=== PATIENT | male | born 1975 | race Caucasian/White ===

== ENCOUNTER 2020-03-16 09:06 | Emergency (ER) | payer OTHER, SELFPAY ==
[2020-03-16 09:15] VITALS: BP 131/83; PULSE 55; RESP 12; TEMP 36.4; O2SAT 99
--- NOTE | 2020-03-16 09:23 | PC.NURSE ---
c/o right testicular tenderness, along with right lymph node tenderness, denies fever,vomiting. denies injuries/trauma. sxs worsen for the last 2-3 days. +voiding without difficulty.
--- NOTE | 2020-03-16 09:27 | PC.NURSE ---
pain 9/10 right testicle.
--- NOTE | 2020-03-16 09:31 | DI.US.S_ITS ---
PROCEDURE: US SCROTUM INDICATIONS: RIGHT TESTICULAR PAIN TECHNIQUE: Real-time scanning was performed of the scrotum and testicles, with image documentation. Color and pulse Doppler interrogation was performed of both testicles. COMPARISON: None. FINDINGS: Right: Testicle is normal in size at 3.1 x 1.2 x 2.8 cm, and homogenous in echotexture. Epididymis is normal in overall size and morphology. No hydrocele or varicoceles. Overlying scrotal skin is normal in thickness. Left: Testicle is normal in size at 2.5 x 1.5 x 3.0 cm, and homogeneous in echotexture. Epididymis is normal in overall size and morphology. No hydrocele or varicoceles. Overlying scrotal skin is normal in thickness. Doppler: Color and pulse Doppler demonstrate normal and symmetric arterial flow in both testicles. IMPRESSION: Normal ultrasound of the bilateral testicles. No findings to explain patient's pain. Dictated by: Jodie Chávez M.D. on 03/16/2020 at 10:04 Approved by: Jodie Chávez M.D. on 03/16/2020 at 10:08
--- NOTE | 2020-03-16 09:33 | ED.MALEGU ---
HPI - Male Genitourinary General Chief complaint: Urogenital-Male Stated complaint: Testicular problem Time Seen by Provider: 03/16/20 09:14 Source: patient Mode of arrival: Ambulatory History of Present Illness HPI Narrative: 44-year-old otherwise healthy gentleman presents with 48 hours of right testicular pain. Initially in countered pain approximately 2 years ago after some travel. Had it evaluated at that time and has been doing well ever since. In the last 48 hours he is having increasing deep pain in the right testicle mild swelling it is tender enough that he is uncomfortable sitting laying and particularly laying prone. He is most comfortable standing with his leg spread slightly. He has not noticed fevers, chills, nausea, vomiting, diarrhea. Has some minor right-sided abdominal pain that seems to be more pain radiating up from the testicle. He has not noticed hematuria but he does notice that he has been voiding more over the last couple of days with mild dysuria. Reports no new sexual partners, no history of STIs, no penile discharge or rashes, no erectile difficulties and no change to color consistency ejaculate recently. Related Data Previous Rx's Medication Instructions Recorded levofloxacin 500 mg PO DAILY #10 tab 03/16/20 Allergies Allergy/AdvReac Type Severity Reaction Status Date / Time aspirin Allergy Intermediate Edema Verified 03/16/20 10:13 NSAIDS (Non-Steroidal Allergy Intermediate Swelling Verified 03/16/20 10:12 Anti-Inflamma all over Review of Systems Review of Systems Narrative: All systems reviewed and are unremarkable except as noted in HPI and below Patient History Social History Smoking Status: Never smoker Smoking Status: Never smoker alcohol intake frequency: a few times a week Substance Use Type: does not use Exam Narrative Exam Narrative: General: Healthy appearing, in no acute distress. Able to give a complete and coherent history. Well-nourished well-developed Respiratory: Lungs are clear to auscultation, no wheezing no rales no rhonchi. Full and symmetrical air movement Cardiac: Regular rate and rhythm no murmurs no bruits Abdomen: Soft nontender good bowel tones, no flank pain Skin: Warm and dry, no rashes Neurologic: Grossly neurologically intact with no obvious asymmetries or abnormalities Extremities: No trauma, well perfused Psych: Cooperative, appropriate insight and affect : Minor right inguinal adenopathy. Right testicular tenderness mostly over the epididymis with out significant edema. No increased redness or significant warmth. Normal circumcised penis without discharge or rashes. Normal cremasteric reflex Initial Vital Signs Initial Vital Signs: Vital Signs Temperature 97.6 F 03/16/20 09:15 Pulse Rate 55 L 03/16/20 09:15 Respiratory Rate 12 03/16/20 09:15 Blood Pressure 131/83 03/16/20 09:15 Pulse Oximetry 99 03/16/20 09:15 Course Orders Ordered: ED Orders 03/16/20 09:20 Chlamydia Gonorrhea PCR -URINE Stat Urinalysis and Microscopic Stat 03/16/20 09:31 US scrotum Stat Vital Signs Vital signs: Vital Signs - 8 hr 03/16/20 09:15 Temperature 97.6 F Pulse Rate 55 L Respiratory Rate 12 Blood Pressure 131/83 Pulse Oximetry 99 MDM - Male Genitourinary Medical Records Attestation: I reviewed the patient's medical records. Lab Data Attestation: I reviewed the patient's lab results. Labs: Lab Results 03/16/20 Range/Units 09:20 Urine Color Yellow Urine Appearance Clear Urine pH 5.5 (4.5-8.0) Ur Specific [place] 1.025 (1.000-1.035) Urine Protein Negative (Negative) Urine Glucose (UA) Negative (Negative) g/dL Urine Ketones Negative (NEGATIVE) Urine Occult Blood Negative (Negative) Urine Nitrate Negative (Negative) Urine Bilirubin Negative (NEGATIVE) Urine Urobilinogen 0.2 (0.2) E.U./dL Ur Leukocyte Esterase Negative (NEGATIVE) Urine RBC None seen (0-5/HPF) Urine WBC None seen (0-5/HPF) Urine Bacteria None seen (None) Ur Culture Indicated? Cult not indicated Micro UA Comment Microscopic normal MDM Narrative Medical decision making narrative: 48 hours of right-sided testicular pain. No evidence of urinary tract infection, sexually transmitted infection, torsion, mass, acute epididymitis on ultrasound, the cellulitis or infection of the scrotum, inguinal hernia. At this point most likely diagnosis is epididymitis. As he is over 35 and at low risk for sexually transmitted infection, up-to-date recommends Levaquin 500 mg daily for 10 days. Patient is safe for home discharge Discharge Plan Departure Patient Disposition: Home Clinical Impression: Epididymitis Instructions: DI for Epididymitis Activity Restrictions/Additional Instructions: Thank you for coming in today. Your ultrasound did not show any significant abnormalities, specifically no torsion. There is no sign of acute bladder infection. The most likely diagnosis at this time is epididymitis. Current recommendations suggest treating this with levofloxacin 500 mg daily, an antibiotic. Tylenol, ice, decreased activity can all help with the pain you are experiencing. Nonsteroidals are most helpful, unfortunately you are allergic to these and should avoid them. If you are not improving at the end of the antibiotic course, I would recommend follow-up with your primary care physician I hope you feel better quickly Prescriptions: New levofloxacin 500 mg tablet 500 mg PO DAILY Qty: 10 RF: 0 Referrals: Shukri Castro MD [Primary Care Provider] - Stand Alone Forms: Work Release Note
[2020-03-16 09:50] LABS: Bacteria Urine None Seen; RBC Urine None Seen (0-5/HPF); WBC Urine None Seen (0-5/HPF)
[2020-03-16 09:51] LABS: Appearance Urine UA CLEAR; Bilirubin Urine UA NEGATIVE (NEGATIVE); Color Urine UA YELLOW; Glucose Urine UA NEGATIVE (Negative); Ketones Urine UA NEGATIVE (NEGATIVE); Leukocyte Esterase Urine UA NEGATIVE (NEGATIVE); Nitrite Urine UA NEGATIVE (Negative); Occult Blood Urine UA NEGATIVE (Negative); Protein Urine UA NEGATIVE (Negative); Specific Gravity Urine UA 1.025 (1.000-1.035); Urobilinogen Urine UA 0.2 E.U./dL (0.2); pH Urine UA 5.5 (4.5-8.0)
[2020-03-16 09:56] LABS: Culture Indicated Urine Cult Not Indicated; Urine Comments Microscopic Normal
[2020-03-16 11:38] LABS: Urine Chlamydia NOT DETECTED; Urine N gonorrhoeae NOT DETECTED
== END 2020-03-16 10:27 | disposition home or self-care (01) ==
PROVIDERS: Emergency Provider Emergency Medicine; PCP Family Medicine
DX: N45.1 Epididymitis (principal)
CPT/HCPCS: 76870; 81001; 87491; 87591; 99283

== ENCOUNTER 2020-05-19 14:01 | Emergency (ER) | payer OTHER, SELFPAY ==
[2020-05-19 14:10] VITALS: BP 122/82; PULSE 54; RESP 14; TEMP 36.5; O2SAT 98
--- NOTE | 2020-05-19 15:11 | DI.US.S_ITS ---
PROCEDURE: US SCROTUM INDICATIONS: RIGHT TESTICULAR PAIN TECHNIQUE: Real-time scanning was performed of the scrotum and testicles, with image documentation. Color and pulse Doppler interrogation was performed of both testicles. COMPARISON: None. FINDINGS: Right: Testicle is normal in size at 3.6 x 1.5 x 2.8 cm with homogeneous echotexture and normal vascularity. Epididymis is normal in overall size and morphology. No hydrocele or varicoceles. Overlying scrotal skin is normal in thickness. Left: Testicle is normal in size at 3.1 x 1.8 x 2.4 cm in width homogeneous echotexture normal vascularity. Epididymis is normal in overall size and morphology. No hydrocele or varicoceles. Overlying scrotal skin is normal in thickness. Doppler: Color and pulse Doppler demonstrate normal and symmetric arterial flow in both testicles. IMPRESSION: Normal scrotal and testicular ultrasound. No findings of epididymitis, orchitis, or testicular mass. Dictated by: Jeff Mack M.D. on 05/19/2020 at 15:52 Approved by: Jeff Mack M.D. on 05/19/2020 at 15:55
[2020-05-19 17:11] LABS: Bacteria Urine None Seen; RBC Urine None Seen (0-5/HPF); WBC Urine None Seen (0-5/HPF)
[2020-05-19 17:13] LABS: Appearance Urine UA CLEAR; Bilirubin Urine UA NEGATIVE (NEGATIVE); Color Urine UA YELLOW; Glucose Urine UA NEGATIVE (Negative); Ketones Urine UA NEGATIVE (NEGATIVE); Leukocyte Esterase Urine UA NEGATIVE (NEGATIVE); Nitrite Urine UA NEGATIVE (Negative); Occult Blood Urine UA NEGATIVE (Negative); Protein Urine UA NEGATIVE (Negative); Specific Gravity Urine UA 1.025 (1.000-1.035); Urobilinogen Urine UA 0.2 E.U./dL (0.2); pH Urine UA 5.5 (4.5-8.0)
[2020-05-19 17:19] LABS: Culture Indicated Urine Cult Not Indicated; Urine Comments Microscopic Normal
--- NOTE | 2020-05-19 18:36 | ED_ITS ---
HPI - Male Genitourinary <CAMILO Bryan - Last Filed: 05/19/20 18:41> General Chief complaint: Urogenital-Male Stated complaint: testicle pain Time Seen by Provider: 05/19/20 14:57 Source: patient Mode of arrival: Ambulatory Limitations: no limitations History of Present Illness HPI Narrative: The patient is a 45-year-old male nonsmoker with history of epididymitis who presents with a chief complaint of right testicular pain. He states he has been treated for epididymitis several times over the past 2 years. He states that he started having some right testicular pain approximately 1 week ago. Denies any risk of sexually transmitted infections, penile drainage or discharge. Denies any fevers nausea vomiting or diarrhea. He states that his pain was really bad the other night so he took a Tylenol with codeine. He is concerned about repeat epididymitis. He was last treated for this in February. Related Data Home Medications Medication Instructions Recorded Confirmed methocarbamol 750 mg tablet 1,500 mg PO BID tab 05/13/20 05/13/20 Previous Rx's Medication Instructions Recorded levofloxacin 500 mg PO DAILY #10 tab 03/16/20 Allergies Allergy/AdvReac Type Severity Reaction Status Date / Time aspirin Allergy Intermediate Edema Verified 03/16/20 10:13 NSAIDS (Non-Steroidal Allergy Intermediate Swelling Verified 03/16/20 10:12 Anti-Inflamma all over Review of Systems <CAMILO Bryan - Last Filed: 05/19/20 18:41> Review of Systems Narrative: GENERAL: Denies chills, fatigue, malaise, fever, sweats. HEENT: Denies sinus pain, ear pain, sore throat, difficulty swallowing, dizziness. RESPIRATORY: Denies dyspnea, cough, wheezing, hemoptysis, sputum. CARDIOVASCULAR: Denies chest pain, palpitations, orthopnea, edema, GASTROINTESTINAL: Denies nausea, vomiting, abdominal pain, diarrhea, constipation, melena. : See HPI MUSCULOSKELETAL: denies weakness, joint pain, or bony pain SKIN: Denies rash, skin lesions, or other NEUROLOGIC: Denies weakness, headache, numbness, change in speech, confusion, seizures, incoordination. PSYCHIATRIC: No concerning psychosocial issues. 12 point review of systems is negative except for those stated above Patient History <CAMILO Bryan - Last Filed: 05/19/20 18:41> Family History Family/Other Hypertension Heart disease Father Diabetes mellitus Alcohol abuse Mother Loud snoring Obesity Hypertension Heart disease Depression Anxiety Family/Other Loud snoring Restless leg Heart disease ADD (attention deficit disorder) Social History Smoking Status: Never smoker Smoking Status: Never smoker alcohol intake frequency: a few times a week Substance Use Type: does not use Exam <RAQUEL Bryan - Last Filed: 05/19/20 18:41> Narrative Exam Narrative: GENERAL: This is a well-nourished, well-developed patient, in no acute distress HEAD: Atraumatic. Normocephalic. No temporal or scalp tenderness. EYES: Pupils equal round and reactive. Extraocular motions intact. No scleral icterus. No injection or drainage. ENT: Nose without bleeding, purulent drainage or septal hematoma. Airway patent. NECK: Trachea midline. No JVD or lymphadenopathy. Supple, nontender, no meningeal signs. CARDIOVASCULAR: Regular rate and rhythm RESPIRATORY: No cough. No increased respiratory effort. No accessory muscle use. GASTROINTESTINAL: Abdomen soft, non-tender, nondistended. No hepato-s plenomegaly, or palpable masses. No guarding. : Slight pain to palpation right testicle. No palpable masses. No penile sores or drainage noted. Positive cremasteric reflexes bilaterally. exam wit Fran GENERAL ADJUSTER at bedside EXTREMITIES: No clubbing, cyanosis, or edema. No joint tenderness, effusion, or edema noted. BACK: Nontender without deformity or crepitance. No flank tenderness. NEURO: AOx3. SKIN: No rash or erythema. Initial Vital Signs Initial Vital Signs: Vital Signs Temperature 97.7 F 05/19/20 14:10 Pulse Rate 54 L 05/19/20 14:10 Respiratory Rate 14 05/19/20 14:10 Blood Pressure 122/82 05/19/20 14:10 Pulse Oximetry 98 05/19/20 14:10 <Lea Alba MD - Last Filed: 05/21/20 07:17> Initial Vital Signs Initial Vital Signs: Vital Signs Temperature 97.7 F 05/19/20 14:10 Pulse Rate 54 L 05/19/20 14:10 Respiratory Rate 14 05/19/20 14:10 Blood Pressure 122/82 05/19/20 14:10 Pulse Oximetry 98 05/19/20 14:10 Scores <Kandy CastanonCAMILO - Last Filed: 05/19/20 18:41> GCS Elvia coma scale eye opening: Spontaneous Elvia coma scale verbal response: Orientated Elvia coma scale motor response: Obey commands Elvia coma scale total score: 15 Course <Kandy VY CastanonTena - Last Filed: 05/19/20 18:41> Orders Ordered: ED Orders 05/19/20 15:11 US scrotum Stat 05/19/20 17:02 Chlamydia Gonorrhea PCR -URINE Stat Urinalysis and Microscopic Stat Vital Signs Vital signs: Vital Signs - 8 hr 05/19/20 14:10 Temperature 97.7 F Pulse Rate 54 L Respiratory Rate 14 Blood Pressure 122/82 Pulse Oximetry 98 <Lea Alba MD - Last Filed: 05/21/20 07:17> Orders Ordered: ED Orders 05/19/20 15:11 US scrotum Stat 05/19/20 17:02 Chlamydia Gonorrhea PCR -URINE Stat Urinalysis and Microscopic Stat Vital Signs Vital signs: Vital Signs - 8 hr 05/19/20 14:10 Temperature 97.7 F Pulse Rate 54 L Respiratory Rate 14 Blood Pressure 122/82 Pulse Oximetry 98 MDM - Male Genitourinary <Kandy MullinsVY [facility] - Last Filed: 05/19/20 18:41> Lab Data Labs: Lab Results 05/19/20 05/19/20 Range/Units 17:02 17:02 Urine Color Yellow Urine Appearance Clear Urine pH 5.5 (4.5-8.0) Ur Specific [place] 1.025 (1.000-1.035) Urine Protein Negative (Negative) Urine Glucose (UA) Negative (Negative) g/dL Urine Ketones Negative (NEGATIVE) Urine Occult Blood Negative (Negative) Urine Nitrate Negative (Negative) Urine Bilirubin Negative (NEGATIVE) Urine Urobilinogen 0.2 (0.2) E.U./dL Ur Leukocyte Esterase Negative (NEGATIVE) Urine RBC None seen (0-5/HPF) Urine WBC None seen (0-5/HPF) Urine Bacteria None seen (None) Ur Culture Indicated? Cult not indicated Micro UA Comment Microscopic normal Ur Chlamydia DNA (PCR) Not detected N gonorrhoeae DNA (PCR) Not detected Imaging Data Scrotal ultrasound: Radiologist's Impression: [address] [place] [id number] Ultrasound Report Signed Patient: Tj Cruz [facility]#: [id number] : 1975Acct:[id number] Age/Sex: 45 / MDate of Service: 05/19/20 Loc: ED Accession Number: [id number] Procedure: US scrotum Ordering Provider: Kandy Castanon PROCEDURE: US SCROTUM INDICATIONS: RIGHT TESTICULAR PAIN TECHNIQUE: Real-time scanning was performed of the scrotum and testicles, with image documentation. Color and pulse Doppler interrogation was performed of both testicles. COMPARISON: None. FINDINGS: Right: Testicle is normal in size at 3.6 x 1.5 x 2.8 cm with homogeneous echotexture and normal vascularity. Epididymis is normal in overall size and morphology. No hydrocele or varicoceles. Overlying scrotal skin is normal in thickness. Left: Testicle is normal in size at 3.1 x 1.8 x 2.4 cm in width homogeneous echotexture normal vascularity. Epididymis is normal in overall size and morphology. No hydrocele or varicoceles. Overlying scrotal skin is normal in thickness. Doppler: Color and pulse Doppler demonstrate normal and symmetric arterial flow in both testicles. IMPRESSION: Normal scrotal and testicular ultrasound. No findings of epididymitis, orchitis, or testicular mass. Dictated by: Jeff Mack M.D. on 05/19/2020 at 15:52 Approved by: Jeff Mack M.D. on 05/19/2020 at 15:55 [facility] Narrative Medical decision making narrative: The patient is a 45-year-old male who presents with a chief complaint of right-sided testicular pain. He has no findings that are acute on exam no acute findings on ultrasound either. Urine has no signs of infection. There are no indications of epididymitis, sexually transmitted infection, urinary infection or testicular torsion. I spoke with Dr. Alba who saw him during his last emergency department visit. Given that he has no acute findings of epididymitis, elected to hold off on antibiotics at this point time. Given that he has been having testicular pain for the past several years, I believe he would benefit from a urology referral. I discussed this at length with patient, the reason for holding off on antibiotics, gave him Dr. Turner's contact information though the [place] He states he can follow-up with her in the next few days. Discussed coming back to the emergency department for any acute concerns. Patient has no questions or concerns upon discharge and states understanding of return precautions as well as follow-up care. <Lea Alba MD - Last Filed: 05/21/20 07:17> Lab Data Labs: Lab Results 05/19/20 05/19/20 Range/Units 17:02 17:02 Urine Color Yellow Urine Appearance Clear Urine pH 5.5 (4.5-8.0) Ur Specific [place] 1.025 (1.000-1.035) Urine Protein Negative (Negative) Urine Glucose (UA) Negative (Negative) g/dL Urine Ketones Negative (NEGATIVE) Urine Occult Blood Negative (Negative) Urine Nitrate Negative (Negative) Urine Bilirubin Negative (NEGATIVE) Urine Urobilinogen 0.2 (0.2) E.U./dL Ur Leukocyte Esterase Negative (NEGATIVE) Urine RBC None seen (0-5/HPF) Urine WBC None seen (0-5/HPF) Urine Bacteria None seen (None) Ur Culture Indicated? Cult not indicated Micro UA Comment Microscopic normal Ur Chlamydia DNA (PCR) Not detected N gonorrhoeae DNA (PCR) Not detected Discharge Plan Departure Patient Disposition: Home Clinical Impression: Testicular discomfort Discharge Date/Time: 05/19/20 18:40 Instructions: DI for Testicular Pain Activity Restrictions/Additional Instructions: Thank you for trusting us with your care today As I discussed, your ultrasound shows no acute findings. Urinalysis does not show any signs of infection. Given that you have had testicular pain over the past several years, I believe that you would benefit from seeing a urologist. I have included the contact information for Dr. Turner in your discharge packet. Please follow-up with primary care provider in the next few days. Please come back to emergency department for any acute concerns Prescriptions: No Action levofloxacin 500 mg tablet 500 mg PO DAILY Qty: 10 RF: 0 methocarbamol 750 mg tablet 1,500 mg PO BID RF: 0 Referrals: Srinivas Turner MD [Physician] - Shukri Castro MD [Primary Care Provider] - Bailey Torres [Non-Staff] - <Lea Alba MD - Last Filed: 05/21/20 07:17> Cosign ED Attending Coschandrakantature Attestation: I was immediately available in the department for consultation throughout this patient's visit. I agree with documentation as above. Lea Alba MD
[2020-05-19 18:40] LABS: Urine N gonorrhoeae NOT DETECTED
[2020-05-19 18:54] LABS: Urine Chlamydia NOT DETECTED
== END 2020-05-19 18:40 | disposition home or self-care (01) ==
PROVIDERS: Emergency Provider Nurse Practitioner Family; PCP Family Medicine
DX: N50.811 Right testicular pain (principal)
CPT/HCPCS: 76870; 81001; 87491; 87591; 99283

== ENCOUNTER → 2020-06-10 13:41 | Outpatient (CLI) | payer OTHER, SELFPAY ==
[2020-06-12 06:53] LABS: COVID19 Sendout Not Detected (Not Detect)
== END ==
PROVIDERS: PCP Family Medicine; Visit Provider Physician Assistant
DX: Z11.59 Encounter for screening for other viral diseases (principal)
CPT/HCPCS: 87635

== ENCOUNTER → 2020-07-18 08:30 | Outpatient (CLI) | payer OTHER, SELFPAY ==
[2020-07-19 10:50] LABS: COVID19 Sendout Not Detected (Not Detect)
== END ==
PROVIDERS: PCP Family Medicine; Visit Provider Nurse Practitioner
DX: Z11.59 Encounter for screening for other viral diseases (principal)
CPT/HCPCS: 87635

== ENCOUNTER 2021-11-14 13:45 | Outpatient (RCR) | payer OTHER, SELFPAY ==
--- NOTE | 2021-09-30 14:50 | PT.OIE ---
Current Diagnoses Low back pain, unspecified (09/30/21) Scrotal pain (09/30/21) Past Medical History (Last Reviewed 07/27/21 @ 16:43 by ERIBERTO Gallo) Allergies (~1986) Anxiety (~2019) Cervical spine disease (~2017) Chronic back pain (~2017) Depression (~2019) Fatigue (~05/2020) Foot pain (~2002) Fractures (~1984) H/O left knee surgery (~2013) Hip pain (~2011) Hyperlipidemia (~2012) Knee pain (~2011) Obstructive sleep apnea (~05/2020) Periodic limb movement disorder (PLMD) (~05/2020) Shoulder pain (~2003) Spermatic cord pain (~2017) Tinnitus (~2013) Past Surgical History (Last Reviewed 07/27/21 @ 16:43 by ERIBERTO Gallo) Anesthesia Femur fracture, right (~1984) H/O left knee surgery (~2013) Labral tear of shoulder (~2006) Visit Care Team Role Provider Type Libertad Bhatia DO Family Provider Physician Primary Care Provider Specialty: Family Practice Address: [address] [place] [address], [facility] Email: [email or web address] Mauricio Maldonado MD Attending Provider Non-Staff Referring Provider Specialty: Internal Medicine Address: [address] [place] [address], [employer] Email: Physical Therapy Initial Evaluation PT-OP-A Visit Information Start: 09/29/21 10:48 Freq: Status: Active Protocol: Document 09/30/21 09:45 AMB (Rec: 09/30/21 10:44 AMB [email or web address]) Out-Patient Physical Therapy Visit Information Visit Information Visit Type Initial Evaluation Visit Start Time 09:45 Visit Stop Time 10:30 Total Visit Minutes 45 Visit Number 1 PT-OP-B Current Condition Start: 09/29/21 10:48 Freq: Status: Active Protocol: Document 09/30/21 09:51 AMB (Rec: 09/30/21 10:05 AMB [id number]) Current Condition History of Current Condition Onset Date 2019 Current Complaints R posterior testicular pain History of Current Condition Tj reports sitting a lot in a conference room that started his testicular pain. He does have low back pain on the right side, that was present longer than the testicular pain. 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 Then tried sperm cord blocks which did help x3. Doesn't hurt during sex, but painful afterwards. Posterior testicular pain describes as sharp with sitting or lying on the right side. Constant pressure, even when standing. Sitting increases right sided back pain. Sometimes has difficulty fully emptying bladder but denies difficulty initiating stream, pain, or constipation, denies pain with bowel movements. Does endorse nocturia, denies pain in sacrum, or radicular pain from the back. Does have anterior hip pain/ tightness, lumbar tightness. Prior Functional Status Baseline Function- ADL's Independent Baseline Function- Mobility Independent Personal Factors Other Personal Factors That May Effect Chronic R sided low back pain, Therapy/Recovery PT-OP-C Subjective Start: 09/29/21 10:48 Freq: Status: Active Protocol: Document 09/30/21 09:45 AMB (Rec: 09/30/21 10:44 AMB [email or web address]) Patient Questionnaires Other Questionnaire Name and Score Jesi Pelvic Dysfunction Screening Protocol: 06/04. PT-OP-I Pelvic Floor Start: 09/29/21 10:48 Freq: Status: Active Protocol: Document 09/30/21 11:13 AMB (Rec: 09/30/21 11:15 AMB [email or web address]) Pelvic Floor Assessment Urine Urinary Symptoms Dribbling After Urination Comments Pelvic Floor Comments Rectal exam pt felt more pressure on the left, otherwise good tone, denies any radiating pain into the testes with palpation. PT-OP-K Range of Motion Start: 09/30/21 10:44 Freq: Status: Active Protocol: Document 09/30/21 11:13 AMB (Rec: 09/30/21 11:15 AMB [email or web address]) Lumbar Spine Range of Motion Lumbar Spine Active Percentage Flexion 50 Extension 100 Lateral Flexion Left 75 Lateral Flexion Right 75 Comments tightness/tension with forward bend, no radiating sx into leg or testes with AROM or overpressure PT-OP-L Special Tests Start: 09/30/21 10:44 Freq: Status: Active Protocol: Document 09/30/21 11:13 AMB (Rec: 11/05/21 11:15 AMB [email or web address]) Special Tests Hip Special Tests Scour Test Test Results - PT-OP-T Assessment and Plan Start: 09/29/21 10:48 Freq: Status: Active Protocol: Document 09/30/21 09:45 AMB (Rec: 09/30/21 14:37 AMB [email or web address]) Physical Therapy Assessment Rehab Potential Rehabilitation Potential Good Evaluation Complexity Number of Personal Factors/Comorbidities 1-2 Number of Body Systems Impaired 3 Clinical Presentation at Evaluation Evolving Impairments Impairments Activity Tolerance,Functional Activities,Pain Goals Two Impairment HEP Short Term Goal (STG) Tj will be independent with a HEP for his low back and pelvis. STG Duration 4 weeks One Impairment Positional tolerance Short Term Goal (STG) Tj will sit for 1 hour with pain or 2/10 or less. STG Duration 4 weeks Intermediate Goal (LTG) Tj will lie in prone with right hip external rotation to sleep without testicular pain . LTG Duration 8 weeks Assessment Summary Assessment Tj attends physical therapy with R testicular pain worst with sitting after a prolonged sitting incident in 2019. He does have a history of right sided low back pain worsened by sitting as well. Rectal assessment did not reproduce his testicular pain during assessment, although he was interestingly more tender on the left levator ani than on the right. He does have significant lumbar stiffness and pain with right hip external rotation. He will benefit from physical therapy for pelvic floor, lumbar, and hip stretching and relaxation training, as well as deep core stabilization and instruction in body mechanics to decrease his right sided pain. Physical Therapy Plan Frequency and Duration Frequency of Treatment 1x/Week Duration of Treatment 10 weeks Plan of Care Start Date 09/30/21 Plan of Care End Date 12/09/21 Therapeutic Interventions Therapeutic Interventions Gait Training,Home Exercise Program,Manual Therapy, Neuromuscular Re-education, Self-Care/Home Management, Therapeutic Activities, Therapeutic Exercises Modalities Biofeedback,Electric Stimulation Next Visit Focus/Plan Next Note Type Treatment Note Next Visit Plan Pelvic floor stretching, stretching for lumbar flexion, awareness of TA, pelvic floor .
--- NOTE | 2021-09-30 14:52 | PT.OPPOC ---
Physical, Occupational & Speech Therapy At [facility] Current Diagnoses Low back pain, unspecified (09/30/21) Scrotal pain (09/30/21) Visit Care Team Role Provider Type Libertad Bhatia DO Family Provider Physician Primary Care Provider Specialty: Family Practice Address: [address] [place] [address], [facility] [place], [address] Email: [email or web address] Mauricio Maldonado MD Attending Provider Non-Staff Referring Provider Specialty: Internal Medicine Address: [address] [place] [address], [id number] Email: Plan Of Care PT-OP-T Assessment and Plan Start: 09/29/21 10:48 Freq: Status: Active Protocol: Document 09/30/21 09:45 AMB (Rec: 09/30/21 14:37 AMB [email or web address]) Physical Therapy Assessment Rehab Potential Rehabilitation Potential Good Evaluation Complexity Number of Personal Factors/Comorbidities 1-2 Number of Body Systems Impaired 3 Clinical Presentation at Evaluation Evolving Impairments Impairments Activity Tolerance,Functional Activities,Pain Goals Two Impairment HEP Short Term Goal (STG) Tj will be independent with a HEP for his low back and pelvis. STG Duration 4 weeks One Impairment Positional tolerance Short Term Goal (STG) Tj will sit for 1 hour with pain or 2/10 or less. STG Duration 4 weeks [employer] Goal (LTG) Tj will lie in prone with right hip external rotation to sleep without testicular pain . LTG Duration 8 weeks Assessment Summary Assessment Tj attends physical therapy with R testicular pain worst with sitting after a prolonged sitting incident in 2019. He does have a history of right sided low back pain worsened by sitting as well. Rectal assessment did not reproduce his testicular pain during assessment, although he was interestingly more tender on the left levator ani than on the right. He does have significant lumbar stiffness and pain with right hip external rotation. He will benefit from physical therapy for pelvic floor, lumbar, and hip stretching and relaxation training, as well as deep core stabilization and instruction in body mechanics to decrease his right sided pain. Physical Therapy Plan Frequency and Duration Frequency of Treatment 1x/Week Duration of Treatment 10 weeks Plan of Care Start Date 09/30/21 Plan of Care End Date 12/09/21 Therapeutic Interventions Therapeutic Interventions Gait Training,Home Exercise Program,Manual Therapy, Neuromuscular Re-education, Self-Care/Home Management, Therapeutic Activities, Therapeutic Exercises Modalities Biofeedback,Electric Stimulation Next Visit Focus/Plan Next Note Type Treatment Note Next Visit Plan Pelvic floor stretching, stretching for lumbar flexion, awareness of TA, pelvic floor . Plan of Care Dates Plan of Care Start Date 09/30/21 Plan of Care End Date 12/09/21 Electronically Signed by: Kristi Banegas, PT 09/30/21 [id number] Please Sign and Return: I have reviewed this Plan of Care and certify that the skilled therapy services above are required to meet the patient?s needs. Physician Signature Date Printed Name and Credentials Clinical Instructor Signature Printed Name and Credentials
--- NOTE | 2021-10-10 09:45 | PT.OTN ---
Current Diagnoses Low back pain, unspecified (10/10/21) Scrotal pain (10/10/21) Physical Therapy Treatment Note PT-OP-A Visit Information Start: 09/29/21 10:48 Freq: Status: Active Protocol: Document 10/10/21 07:30 AMB (Rec: 10/10/21 09:45 AMB [email or web address]) Out-Patient Physical Therapy Visit Information Visit Information Visit Type Treatment Note Visit Start Time 07:30 Visit Stop Time 08:15 Total Visit Minutes 45 Visit Number 2 PT-OP-B Current Condition Start: 09/29/21 10:48 Freq: Status: Active Protocol: Document 09/30/21 09:51 AMB (Rec: 09/30/21 10:05 AMB [id number]) Current Condition History of Current Condition Onset Date 2018 Current Complaints R posterior testicular pain History of Current Condition Tj reports sitting a lot in a conference room that started his testicular pain. He does have low back pain on the right side, that was present longer than the testicular pain. 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 Then tried sperm cord blocks which did help x3. Doesn't hurt during sex, but painful afterwards. Posterior testicular pain describes as sharp with sitting or lying on the right side. Constant pressure, even when standing. Sitting increases right sided back pain. Sometimes has difficulty fully emptying bladder but denies difficulty initiating stream, pain, or constipation, denies pain with bowel movements. Does endorse nocturia, denies pain in sacrum, or radicular pain from the back. Does have anterior hip pain/ tightness, lumbar tightness. Prior Functional Status Baseline Function- ADL's Independent Baseline Function- Mobility Independent Personal Factors Other Personal Factors That May Effect Chronic R sided low back pain, Therapy/Recovery PT-OP-C Subjective Start: 09/29/21 10:48 Freq: Status: Active Protocol: Document 10/10/21 07:30 AMB (Rec: 10/10/21 09:45 AMB [email or web address]) OP-PT Subjective Patient Comments Patient Comments Tj has been noticing back pain with testicular pain now that he is more aware of that. PT-OP-I Pelvic Floor Start: 09/29/21 10:48 Freq: Status: Active Protocol: Document 09/30/21 11:13 AMB (Rec: 09/30/21 11:15 AMB [email or web address]) Pelvic Floor Assessment Urine Urinary Symptoms Dribbling After Urination Comments Pelvic Floor Comments Rectal exam pt felt more pressure on the left, otherwise good tone, denies any radiating pain into the testes with palpation. PT-OP-K Range of Motion Start: 09/30/21 10:44 Freq: Status: Active Protocol: Document 09/30/21 11:13 AMB (Rec: 09/30/21 11:15 AMB [email or web address]) Lumbar Spine Range of Motion Lumbar Spine Active Percentage Flexion 50 Extension 100 Lateral Flexion Left 75 Lateral Flexion Right 75 Comments tightness/tension with forward bend, no radiating sx into leg or testes with AROM or overpressure PT-OP-L Special Tests Start: 09/30/21 10:44 Freq: Status: Active Protocol: Document 09/30/21 11:13 AMB (Rec: 09/30/21 11:15 AMB [email or web address]) Special Tests Hip Special Tests Scour Test Test Results - PT-OP-Q Treatments Start: 09/29/21 10:48 Freq: Status: Active Protocol: Document 10/10/21 07:30 AMB (Rec: 10/10/21 09:45 AMB [email or web address]) Therapeutic Exercises Supine Exercises 2 Supine Exercise Name hip flexor stretch Reps/Minutes 30x5 1 Supine Exercise Name hamstring stretch Reps/Minutes 30x2 Sitting Exercises 1 Sitting Exercise Name sitting posture avoiding lumbar flexion Other Exercises 2 Other Exercise Name cat cow Comments with focus on breathing 1 Other Exercise Name ehsan pose Comments with focus on pelvic floor stretching and lumbar flexion PT-OP-T Assessment and Plan Start: 09/29/21 10:48 Freq: Status: Active Protocol: Document 10/10/21 07:30 AMB (Rec: 10/10/21 09:45 AMB [email or web address]) Physical Therapy Assessment Goals Two Impairment HEP Short Term Goal (STG) Tj will be independent with a HEP for his low back and pelvis. STG Duration 4 weeks One Impairment Positional tolerance Short Term Goal (STG) Tj will sit for 1 hour with pain or 2/10 or less. STG Duration 4 weeks Alf Goal (LTG) Tj will lie in prone with right hip external rotation to sleep without testicular pain . LTG Duration 8 weeks Assessment Summary Assessment Very tight hip flexor and hamstring on the right. Tj tends to keep his low back in extension even with ehsan pose. Will need to work on pelvic tilts, but pt does tend to sacral sit, and discussed sitting posture in depth as well. Physical Therapy Plan Next Visit Focus/Plan Next Note Type Treatment Note Next Visit Plan Pelvic floor stretching, stretching for lumbar flexion, awareness of TA, pelvic floor .
--- NOTE | 2021-10-17 15:52 | PT.OTN ---
Current Diagnoses Low back pain, unspecified (10/17/21) Scrotal pain (10/17/21) Physical Therapy Treatment Note PT-OP-A Visit Information Start: 09/29/21 10:48 Freq: Status: Active Protocol: Document 10/17/21 09:15 AMB (Rec: 10/18/21 15:52 AMB [email or web address]) Out-Patient Physical Therapy Visit Information Visit Information Visit Type Treatment Note Visit Start Time 09:15 Visit Stop Time 10:00 Total Visit Minutes 45 Visit Number 3 PT-OP-B Current Condition Start: 09/29/21 10:48 Freq: Status: Active Protocol: Document 09/30/21 09:51 AMB (Rec: 09/30/21 10:05 AMB [id number]) Current Condition History of Current Condition Onset Date 2018 Current Complaints R posterior testicular pain History of Current Condition Tj reports sitting a lot in a conference room that started his testicular pain. He does have low back pain on the right side, that was present longer than the testicular pain. 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 Then tried sperm cord blocks which did help x3. Doesn't hurt during sex, but painful afterwards. Posterior testicular pain describes as sharp with sitting or lying on the right side. Constant pressure, even when standing. Sitting increases right sided back pain. Sometimes has difficulty fully emptying bladder but denies difficulty initiating stream, pain, or constipation, denies pain with bowel movements. Does endorse nocturia, denies pain in sacrum, or radicular pain from the back. Does have anterior hip pain/ tightness, lumbar tightness. Prior Functional Status Baseline Function- ADL's Independent Baseline Function- Mobility Independent Personal Factors Other Personal Factors That May Effect Chronic R sided low back pain, Therapy/Recovery PT-OP-C Subjective Start: 09/29/21 10:48 Freq: Status: Active Protocol: Document 10/17/21 09:15 AMB (Rec: 10/18/21 15:52 AMB [email or web address]) OP-PT Subjective Patient Comments Patient Comments Tj continues to note improvement in sx, but thinks it is because he is not sitting as much. PT-OP-I Pelvic Floor Start: 09/29/21 10:48 Freq: Status: Active Protocol: Document 09/30/21 11:13 AMB (Rec: 09/30/21 11:15 AMB [email or web address]) Pelvic Floor Assessment Urine Urinary Symptoms Dribbling After Urination Comments Pelvic Floor Comments Rectal exam pt felt more pressure on the left, otherwise good tone, denies any radiating pain into the testes with palpation. PT-OP-K Range of Motion Start: 09/30/21 10:44 Freq: Status: Active Protocol: Document 09/30/21 11:13 AMB (Rec: 09/30/21 11:15 AMB [email or web address]) Lumbar Spine Range of Motion Lumbar Spine Active Percentage Flexion 50 Extension 100 Lateral Flexion Left 75 Lateral Flexion Right 75 Comments tightness/tension with forward bend, no radiating sx into leg or testes with AROM or overpressure PT-OP-L Special Tests Start: 09/30/21 10:44 Freq: Status: Active Protocol: Document 09/30/21 11:13 AMB (Rec: 09/30/21 11:15 AMB [email or web address]) Special Tests Hip Special Tests Scour Test Test Results - PT-OP-Q Treatments Start: 09/29/21 10:48 Freq: Status: Active Protocol: Document 10/17/21 09:15 AMB (Rec: 10/18/21 15:52 AMB [email or web address]) Therapeutic Exercises Supine Exercises 3 Supine Exercise Name adductor stretch Reps/Minutes 30x2 2 Supine Exercise Name hip flexor stretch Reps/Minutes 30x5 1 Supine Exercise Name hamstring stretch Reps/Minutes 30x2 Sitting Exercises 2 Sitting Exercise Name therapy ball sitting- pelvic circles Other Exercises 2 Other Exercise Name cat cow Comments with focus on breathing 1 Other Exercise Name ehsan pose Comments with focus on pelvic floor stretching and lumbar flexion PT-OP-T Assessment and Plan Start: 09/29/21 10:48 Freq: Status: Active Protocol: Document 10/17/21 09:15 AMB (Rec: 10/18/21 15:52 AMB [email or web address]) Physical Therapy Assessment Goals Two Impairment HEP Short Term Goal (STG) Tj will be independent with a HEP for his low back and pelvis. STG Duration 4 weeks One Impairment Positional tolerance Short Term Goal (STG) Tj will sit for 1 hour with pain or 2/10 or less. STG Duration 4 weeks [employer] Goal (LTG) Tj will lie in prone with right hip external rotation to sleep without testicular pain . LTG Duration 8 weeks Assessment Summary Assessment Continued to work on flexibility on the right. [place] better when sitting on ball, but pelvic circles increased sx. Manual traction decreases sx. Physical Therapy Plan Next Visit Focus/Plan Next Note Type Treatment Note Next Visit Plan Pelvic floor stretching, stretching for lumbar flexion, awareness of TA, pelvic floor .
--- NOTE | 2021-10-24 13:45 | PT.OTN ---
Current Diagnoses Low back pain, unspecified (10/24/21) Scrotal pain (10/24/21) Physical Therapy Treatment Note PT-OP-A Visit Information Start: 09/29/21 10:48 Freq: Status: Active Protocol: Document 10/24/21 10:35 AMB (Rec: 10/24/21 11:23 AMB [id number]) Out-Patient Physical Therapy Visit Information Visit Information Visit Type Treatment Note Visit Start Time 10:30 Visit Stop Time 11:15 Total Visit Minutes 45 Visit Number 4 PT-OP-B Current Condition Start: 09/29/21 10:48 Freq: Status: Active Protocol: Document 09/30/21 09:51 AMB (Rec: 09/30/21 10:05 AMB [id number]) Current Condition History of Current Condition Onset Date 2018 Current Complaints R posterior testicular pain History of Current Condition Tj reports sitting a lot in a conference room that started his testicular pain. He does have low back pain on the right side, that was present longer than the testicular pain. 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 Then tried sperm cord blocks which did help x3. Doesn't hurt during sex, but painful afterwards. Posterior testicular pain describes as sharp with sitting or lying on the right side. Constant pressure, even when standing. Sitting increases right sided back pain. Sometimes has difficulty fully emptying bladder but denies difficulty initiating stream, pain, or constipation, denies pain with bowel movements. Does endorse nocturia, denies pain in sacrum, or radicular pain from the back. Does have anterior hip pain/ tightness, lumbar tightness. Prior Functional Status Baseline Function- ADL's Independent Baseline Function- Mobility Independent Personal Factors Other Personal Factors That May Effect Chronic R sided low back pain, Therapy/Recovery PT-OP-C Subjective Start: 09/29/21 10:48 Freq: Status: Active Protocol: Document 10/24/21 10:30 AMB (Rec: 10/24/21 13:45 AMB [email or web address]) OP-PT Subjective Patient Comments Patient Comments Tj is feeling good after getting into the pool at 5am today, but does note getting enough lumbar extension is challenging during the back stroke. Did ok with driving over weekend. PT-OP-I Pelvic Floor Start: 09/29/21 10:48 Freq: Status: Active Protocol: Document 09/30/21 11:13 AMB (Rec: 09/30/21 11:15 AMB [email or web address]) Pelvic Floor Assessment Urine Urinary Symptoms Dribbling After Urination Comments Pelvic Floor Comments Rectal exam pt felt more pressure on the left, otherwise good tone, denies any radiating pain into the testes with palpation. PT-OP-K Range of Motion Start: 09/30/21 10:44 Freq: Status: Active Protocol: Document 09/30/21 11:13 AMB (Rec: 09/30/21 11:15 AMB [email or web address]) Lumbar Spine Range of Motion Lumbar Spine Active Percentage Flexion 50 Extension 100 Lateral Flexion Left 75 Lateral Flexion Right 75 Comments tightness/tension with forward bend, no radiating sx into leg or testes with AROM or overpressure PT-OP-L Special Tests Start: 09/30/21 10:44 Freq: Status: Active Protocol: Document 09/30/21 11:13 AMB (Rec: 09/30/21 11:15 AMB [email or web address]) Special Tests Hip Special Tests Scour Test Test Results - PT-OP-Q Treatments Start: 09/29/21 10:48 Freq: Status: Active Protocol: Document 10/24/21 10:30 AMB (Rec: 10/24/21 13:45 AMB [email or web address]) Therapeutic Exercises Supine Exercises 3 Supine Exercise Name adductor stretch Reps/Minutes 30x2 2 Supine Exercise Name hip flexor stretch Reps/Minutes 30x5 1 Supine Exercise Name hamstring stretch Reps/Minutes 30x2 Standing Exercises 1 Standing Exercise Name active hamstring stretch Comments against wall, pt felt tighter on R Other Exercises 3 Other Exercise Name downward dog Reps/Minutes 30x2 Comments cued to bend knees and keep back flat 2 Other Exercise Name cat cow Comments with focus on breathing 1 Other Exercise Name ehsan pose Comments with focus on pelvic floor stretching and lumbar flexion PT-OP-T Assessment and Plan Start: 09/29/21 10:48 Freq: Status: Active Protocol: Document 10/24/21 10:30 AMB (Rec: 10/24/21 13:45 AMB [email or web address]) Physical Therapy Assessment Goals Two Impairment HEP Short Term Goal (STG) Tj will be independent with a HEP for his low back and pelvis. STG Duration 4 weeks One Impairment Positional tolerance Short Term Goal (STG) Tj will sit for 1 hour with pain or 2/10 or less. STG Duration 4 weeks [facility] Goal (LTG) Tj will lie in prone with right hip external rotation to sleep without testicular pain . LTG Duration 8 weeks Assessment Summary Assessment Tj continues to be tight in the right hip and have back pain with even gentle anterior pelvic tilt, but did not reproduce any testicular pain today, other than with sitting . Lying on the side to sleep does seem better per pt as far as testicular pain. Physical Therapy Plan Next Visit Focus/Plan Next Note Type Treatment Note Next Visit Plan Pelvic floor stretching, stretching for lumbar flexion, awareness of TA, pelvic floor .
--- NOTE | 2021-11-04 11:46 | PT.OTN ---
Current Diagnoses Low back pain, unspecified (11/04/21) Scrotal pain (11/04/21) Physical Therapy Treatment Note PT-OP-A Visit Information Start: 09/29/21 10:48 Freq: Status: Active Protocol: Document 11/04/21 08:15 AMB (Rec: 11/04/21 11:46 AMB [email or web address]) Out-Patient Physical Therapy Visit Information Visit Information Visit Type Treatment Note Visit Start Time 08:15 Visit Stop Time 09:00 Total Visit Minutes 45 Visit Number 5 PT-OP-B Current Condition Start: 09/29/21 10:48 Freq: Status: Active Protocol: Document 09/30/21 09:51 AMB (Rec: 09/30/21 10:05 AMB [id number]) Current Condition History of Current Condition Onset Date 2018 Current Complaints R posterior testicular pain History of Current Condition Tj reports sitting a lot in a conference room that started his testicular pain. He does have low back pain on the right side, that was present longer than the testicular pain. 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 Then tried sperm cord blocks which did help x3. Doesn't hurt during sex, but painful afterwards. Posterior testicular pain describes as sharp with sitting or lying on the right side. Constant pressure, even when standing. Sitting increases right sided back pain. Sometimes has difficulty fully emptying bladder but denies difficulty initiating stream, pain, or constipation, denies pain with bowel movements. Does endorse nocturia, denies pain in sacrum, or radicular pain from the back. Does have anterior hip pain/ tightness, lumbar tightness. Prior Functional Status Baseline Function- ADL's Independent Baseline Function- Mobility Independent Personal Factors Other Personal Factors That May Effect Chronic R sided low back pain, Therapy/Recovery PT-OP-C Subjective Start: 09/29/21 10:48 Freq: Status: Active Protocol: Document 11/04/21 08:15 AMB (Rec: 11/04/21 11:46 AMB [email or web address]) OP-PT Subjective Patient Comments Patient Comments Tj has been seeing a chiropractor and that may have helped with his pain too PT-OP-I Pelvic Floor Start: 09/29/21 10:48 Freq: Status: Active Protocol: Document 09/30/21 11:13 AMB (Rec: 09/30/21 11:15 AMB [email or web address]) Pelvic Floor Assessment Urine Urinary Symptoms Dribbling After Urination Comments Pelvic Floor Comments Rectal exam pt felt more pressure on the left, otherwise good tone, denies any radiating pain into the testes with palpation. PT-OP-K Range of Motion Start: 09/30/21 10:44 Freq: Status: Active Protocol: Document 09/30/21 11:13 AMB (Rec: 09/30/21 11:15 AMB [email or web address]) Lumbar Spine Range of Motion Lumbar Spine Active Percentage Flexion 50 Extension 100 Lateral Flexion Left 75 Lateral Flexion Right 75 Comments tightness/tension with forward bend, no radiating sx into leg or testes with AROM or overpressure PT-OP-L Special Tests Start: 09/30/21 10:44 Freq: Status: Active Protocol: Document 09/30/21 11:13 AMB (Rec: 09/30/21 11:15 AMB [email or web address]) Special Tests Hip Special Tests Scour Test Test Results - PT-OP-Q Treatments Start: 09/29/21 10:48 Freq: Status: Active Protocol: Document 11/04/21 08:15 AMB (Rec: 11/04/21 11:46 AMB [email or web address]) Therapeutic Exercises Supine Exercises 3 Supine Exercise Name adductor stretch Reps/Minutes 30x2 2 Supine Exercise Name hip flexor stretch Reps/Minutes 30x5 1 Supine Exercise Name hamstring stretch Reps/Minutes 30x2 Standing Exercises 1 Standing Exercise Name active hamstring stretch Comments against wall, pt felt tighter on R PT-OP-T Assessment and Plan Start: 09/29/21 10:48 Freq: Status: Active Protocol: Document 11/04/21 08:15 AMB (Rec: 11/04/21 11:46 AMB [email or web address]) Physical Therapy Assessment Goals Two Impairment HEP Short Term Goal (STG) Tj will be independent with a HEP for his low back and pelvis. STG Duration 4 weeks One Impairment Positional tolerance Short Term Goal (STG) Tj will sit for 1 hour with pain or 2/10 or less. STG Duration 4 weeks Nursing Home Goal (LTG) Tj will lie in prone with right hip external rotation to sleep without testicular pain . LTG Duration 8 weeks Assessment Summary Assessment Pt reports 1/10 pain, more of an awareness than pain today with sitting and R sidelying. Physical Therapy Plan Next Visit Focus/Plan Next Note Type Treatment Note Next Visit Plan Pelvic floor stretching, stretching for lumbar flexion, awareness of TA, pelvic floor .
--- NOTE | 2021-11-09 15:37 | PT.OTN ---
Current Diagnoses Low back pain, unspecified (11/09/21) Scrotal pain (11/09/21) Physical Therapy Treatment Note PT-OP-A Visit Information Start: 09/29/21 10:48 Freq: Status: Active Protocol: Document 11/09/21 08:15 AMB (Rec: 11/09/21 14:35 AMB [email or web address]) Out-Patient Physical Therapy Visit Information Visit Information Visit Type Treatment Note Visit Start Time 08:15 Visit Stop Time 09:00 Total Visit Minutes 45 Visit Number 6 PT-OP-B Current Condition Start: 09/29/21 10:48 Freq: Status: Active Protocol: Document 09/30/21 09:51 AMB (Rec: 09/30/21 10:05 AMB [id number]) Current Condition History of Current Condition Onset Date 2018 Current Complaints R posterior testicular pain History of Current Condition Tj reports sitting a lot in a conference room that started his testicular pain. He does have low back pain on the right side, that was present longer than the testicular pain. 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 Then tried sperm cord blocks which did help x3. Doesn't hurt during sex, but painful afterwards. Posterior testicular pain describes as sharp with sitting or lying on the right side. Constant pressure, even when standing. Sitting increases right sided back pain. Sometimes has difficulty fully emptying bladder but denies difficulty initiating stream, pain, or constipation, denies pain with bowel movements. Does endorse nocturia, denies pain in sacrum, or radicular pain from the back. Does have anterior hip pain/ tightness, lumbar tightness. Prior Functional Status Baseline Function- ADL's Independent Baseline Function- Mobility Independent Personal Factors Other Personal Factors That May Effect Chronic R sided low back pain, Therapy/Recovery PT-OP-C Subjective Start: 09/29/21 10:48 Freq: Status: Active Protocol: Document 11/09/21 08:15 AMB (Rec: 11/09/21 14:35 AMB [email or web address]) OP-PT Subjective Patient Comments Patient Comments Tj went on a run over the weekend and did not have any pain with that. Sleeping is getting less painful. He continues to have 1-2/10 pain with sitting and to need to sit to the side to avoid pain. PT-OP-I Pelvic Floor Start: 09/29/21 10:48 Freq: Status: Active Protocol: Document 09/30/21 11:13 AMB (Rec: 09/30/21 11:15 AMB [email or web address]) Pelvic Floor Assessment Urine Urinary Symptoms Dribbling After Urination Comments Pelvic Floor Comments Rectal exam pt felt more pressure on the left, otherwise good tone, denies any radiating pain into the testes with palpation. PT-OP-K Range of Motion Start: 09/30/21 10:44 Freq: Status: Active Protocol: Document 09/30/21 11:13 AMB (Rec: 09/30/21 11:15 AMB [email or web address]) Lumbar Spine Range of Motion Lumbar Spine Active Percentage Flexion 50 Extension 100 Lateral Flexion Left 75 Lateral Flexion Right 75 Comments tightness/tension with forward bend, no radiating sx into leg or testes with AROM or overpressure PT-OP-L Special Tests Start: 09/30/21 10:44 Freq: Status: Active Protocol: Document 09/30/21 11:13 AMB (Rec: 09/30/21 11:15 AMB [email or web address]) Special Tests Hip Special Tests Scour Test Test Results - PT-OP-Q Treatments Start: 09/29/21 10:48 Freq: Status: Active Protocol: Document 11/09/21 08:15 AMB (Rec: 11/09/21 14:35 AMB [email or web address]) Therapeutic Exercises Supine Exercises 3 Supine Exercise Name adductor stretch Reps/Minutes 30x2 2 Supine Exercise Name hip flexor stretch Reps/Minutes 30x5 1 Supine Exercise Name hamstring stretch Reps/Minutes 30x2 Standing Exercises 1 Standing Exercise Name active hamstring stretch Comments against wall, pt felt tighter on R Other Exercises 5 Other Exercise Name fire hydrant Reps/Minutes 2x10 4 Other Exercise Name bird dog Reps/Minutes 2x10 2 Other Exercise Name cat cow Comments with focus on breathing 1 Other Exercise Name ehsan pose Comments with focus on pelvic floor stretching and lumbar flexion PT-OP-T Assessment and Plan Start: 09/29/21 10:48 Freq: Status: Active Protocol: Document 11/09/21 08:23 AMB (Rec: 11/09/21 09:00 AMB [id number]) Physical Therapy Assessment Goals Two Impairment HEP Short Term Goal (STG) Tj will be independent with a HEP for his low back and pelvis. STG Duration 4 weeks One Impairment Positional tolerance Short Term Goal (STG) Tj will sit for 1 hour with pain or 2/10 or less. STG Duration 4 weeks Count Team Clerk Goal (LTG) Tj will lie in prone with right hip external rotation to sleep without testicular pain . LTG Duration MET Assessment Summary Assessment Pt continues to have pain with sitting, but overall is improving. Physical Therapy Plan Next Visit Focus/Plan Next Note Type Discharge Summary
--- NOTE | 2021-11-14 14:33 | PT.OTN ---
Current Diagnoses Low back pain, unspecified (11/14/21) Scrotal pain (11/14/21) Physical Therapy Treatment Note PT-OP-A Visit Information Start: 09/29/21 10:48 Freq: Status: Active Protocol: Document 11/14/21 13:45 AMB (Rec: 11/14/21 14:32 AMB [id number]) Out-Patient Physical Therapy Visit Information Visit Information Visit Type Discharge Summary Visit Start Time 13:45 Visit Stop Time 14:15 Total Visit Minutes 45 Visit Number 7 PT-OP-B Current Condition Start: 09/29/21 10:48 Freq: Status: Active Protocol: Document 09/30/21 09:51 AMB (Rec: 09/30/21 10:05 AMB [id number]) Current Condition History of Current Condition Onset Date 2018 Current Complaints R posterior testicular pain History of Current Condition Tj reports sitting a lot in a conference room that started his testicular pain. He does have low back pain on the right side, that was present longer than the testicular pain. 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 Then tried sperm cord blocks which did help x3. Doesn't hurt during sex, but painful afterwards. Posterior testicular pain describes as sharp with sitting or lying on the right side. Constant pressure, even when standing. Sitting increases right sided back pain. Sometimes has difficulty fully emptying bladder but denies difficulty initiating stream, pain, or constipation, denies pain with bowel movements. Does endorse nocturia, denies pain in sacrum, or radicular pain from the back. Does have anterior hip pain/ tightness, lumbar tightness. Prior Functional Status Baseline Function- ADL's Independent Baseline Function- Mobility Independent Personal Factors Other Personal Factors That May Effect Chronic R sided low back pain, Therapy/Recovery PT-OP-C Subjective Start: 09/29/21 10:48 Freq: Status: Active Protocol: Document 11/14/21 13:45 AMB (Rec: 11/14/21 14:32 AMB [id number]) OP-PT Subjective Patient Comments Patient Comments Tj went mountain biking yesterday and that went well no sx. Continued sx with extended sitting. PT-OP-I Pelvic Floor Start: 09/29/21 10:48 Freq: Status: Active Protocol: Document 09/30/21 11:13 AMB (Rec: 09/30/21 11:15 AMB [email or web address]) Pelvic Floor Assessment Urine Urinary Symptoms Dribbling After Urination Comments Pelvic Floor Comments Rectal exam pt felt more pressure on the left, otherwise good tone, denies any radiating pain into the testes with palpation. PT-OP-K Range of Motion Start: 09/30/21 10:44 Freq: Status: Active Protocol: Document 09/30/21 11:13 AMB (Rec: 09/30/21 11:15 AMB [email or web address]) Lumbar Spine Range of Motion Lumbar Spine Active Percentage Flexion 50 Extension 100 Lateral Flexion Left 75 Lateral Flexion Right 75 Comments tightness/tension with forward bend, no radiating sx into leg or testes with AROM or overpressure PT-OP-L Special Tests Start: 09/30/21 10:44 Freq: Status: Active Protocol: Document 09/30/21 11:13 AMB (Rec: 09/30/21 11:15 AMB [email or web address]) Special Tests Hip Special Tests Scour Test Test Results - PT-OP-Q Treatments Start: 09/29/21 10:48 Freq: Status: Active Protocol: Document 11/14/21 13:45 AMB (Rec: 11/14/21 14:32 AMB [id number]) Therapeutic Exercises Supine Exercises 3 Supine Exercise Name adductor stretch Reps/Minutes 30x2 2 Supine Exercise Name hip flexor stretch Reps/Minutes 30x5 1 Supine Exercise Name hamstring stretch Reps/Minutes 30x2 Standing Exercises 1 Standing Exercise Name active hamstring stretch Comments against wall, pt felt tighter on R Other Exercises 6 Other Exercise Name downward dog Reps/Minutes 10x10 1 Other Exercise Name ehsan pose Comments with focus on pelvic floor stretching and lumbar flexion PT-OP-T Assessment and Plan Start: 09/29/21 10:48 Freq: Status: Active Protocol: Document 11/14/21 13:45 AMB (Rec: 11/14/21 14:32 AMB [id number]) Physical Therapy Assessment Goals Two Impairment HEP Short Term Goal (STG) Tj will be independent with a HEP for his low back and pelvis. STG Duration 4 weeks One Impairment Positional tolerance Short Term Goal (STG) Tj will sit for 1 hour with pain or 2/10 or less. STG Duration PARTIALLY MET Cage Fighter Goal (LTG) Tj will lie in prone with right hip external rotation to sleep without testicular pain . LTG Duration MET Assessment Summary Assessment Pt overall feels better, he is able to sleep without pain. He does continue to have pain with sitting, especially sitting with more pressure on the right side. He is doing more to stretch out the right side. Physical Therapy Plan Discharge Physical Therapy Discharge Reasons Goals Met
--- NOTE | 2021-11-14 14:35 | PT.OPDS ---
Current Diagnoses Low back pain, unspecified (11/14/21) Scrotal pain (11/14/21) Visit Care Team Role Provider Type Libertad Bhatia DO Family Provider Physician Primary Care Provider Specialty: Family Practice Address: [address] [place] [address], [id number] Email: [email or web address] Mauricio Maldonado MD Attending Provider Non-Staff Referring Provider Specialty: Internal Medicine Address: [address] [place] [address], [id number] Email: Visit Number Visit Number 7 Discharge Summary PT-OP-B Current Condition Start: 09/29/21 10:48 Freq: Status: Active Protocol: Document 09/30/21 09:51 AMB (Rec: 09/30/21 10:05 AMB [id number]) Current Condition History of Current Condition Onset Date 2018 Current Complaints R posterior testicular pain History of Current Condition Tj reports sitting a lot in a conference room that started his testicular pain. He does have low back pain on the right side, that was present longer than the testicular pain. 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 Then tried sperm cord blocks which did help x3. Doesn't hurt during sex, but painful afterwards. Posterior testicular pain describes as sharp with sitting or lying on the right side. Constant pressure, even when standing. Sitting increases right sided back pain. Sometimes has difficulty fully emptying bladder but denies difficulty initiating stream, pain, or constipation, denies pain with bowel movements. Does endorse nocturia, denies pain in sacrum, or radicular pain from the back. Does have anterior hip pain/ tightness, lumbar tightness. Prior Functional Status Baseline Function- ADL's Independent Baseline Function- Mobility Independent Personal Factors Other Personal Factors That May Effect Chronic R sided low back pain, Therapy/Recovery PT-OP-C Subjective Start: 09/29/21 10:48 Freq: Status: Active Protocol: Document 11/14/21 13:45 AMB (Rec: 11/14/21 14:32 AMB [id number]) OP-PT Subjective Patient Comments Patient Comments Tj went mountain biking yesterday and that went well no sx. Continued sx with extended sitting. PT-OP-I Pelvic Floor Start: 09/29/21 10:48 Freq: Status: Active Protocol: Document 09/30/21 11:13 AMB (Rec: 09/30/21 11:15 AMB [email or web address]) Pelvic Floor Assessment Urine Urinary Symptoms Dribbling After Urination Comments Pelvic Floor Comments Rectal exam pt felt more pressure on the left, otherwise good tone, denies any radiating pain into the testes with palpation. PT-OP-K Range of Motion Start: 09/30/21 10:44 Freq: Status: Active Protocol: Document 09/30/21 11:13 AMB (Rec: 09/30/21 11:15 AMB [email or web address]) Lumbar Spine Range of Motion Lumbar Spine Active Percentage Flexion 50 Extension 100 Lateral Flexion Left 75 Lateral Flexion Right 75 Comments tightness/tension with forward bend, no radiating sx into leg or testes with AROM or overpressure PT-OP-L Special Tests Start: 09/30/21 10:44 Freq: Status: Active Protocol: Document 09/30/21 11:13 AMB (Rec: 09/30/21 11:15 AMB [email or web address]) Special Tests Hip Special Tests Scour Test Test Results - PT-OP-T Assessment and Plan Start: 09/29/21 10:48 Freq: Status: Active Protocol: Document 11/14/21 13:45 AMB (Rec: 11/14/21 14:32 AMB [id number]) Physical Therapy Assessment Goals Two Impairment HEP Short Term Goal (STG) Tj will be independent with a HEP for his low back and pelvis. STG Duration 4 weeks One Impairment Positional tolerance Short Term Goal (STG) Tj will sit for 1 hour with pain or 2/10 or less. STG Duration PARTIALLY MET Dual Rate Dealer Goal (LTG) Tj will lie in prone with right hip external rotation to sleep without testicular pain . LTG Duration MET Assessment Summary Assessment Pt overall feels better, he is able to sleep without pain. He does continue to have pain with sitting, especially sitting with more pressure on the right side. He is doing more to stretch out the right side. Physical Therapy Plan Discharge Physical Therapy Discharge Reasons Goals Met
== END 2021-12-27 08:58 ==
LOC: PHYS 13:45
PROVIDERS: Family Provider Family Medicine; PCP Family Medicine; Referring Provider Internal Medicine; Visit Provider Internal Medicine
DX: N50.82 Scrotal pain (principal); M54.50 Low back pain, unspecified
CPT/HCPCS: 97110; 97140; 97162

== ENCOUNTER → 2022-11-07 16:06 | Outpatient (CLI) | payer OTHER, SELFPAY ==
[2022-11-07 17:14] LABS: Influenza A - CEPHEID Flu A POSITIVE (NEGATIVE); Influenza B - CEPHEID Flu B NEGATIVE (NEGATIVE); Respiratory Syncytial Virus Negative (Negative)
[2022-11-07 17:15] LABS: COVID-19 CEPHEID 4-PLEX PCR Negative (Negative)
== END ==
PROVIDERS: Family Provider Family Medicine; PCP Family Medicine; Visit Provider Registered Nurse
DX: R05.1 Acute cough (principal); Z20.822 Contact with and (suspected) exposure to COVID-19
CPT/HCPCS: 0241U

== ENCOUNTER → 2023-01-06 08:09 | Outpatient (CLI) | payer OTHER, SELFPAY ==
--- NOTE | 2023-01-06 08:10 | DI.MRI.S_ITS ---
PROCEDURE: MRFOOT LT WO CON INDICATIONS: Pain in left foot TECHNIQUE: Noncontrast sagittal T1 spin echo and T2 fast spin echo with fat saturation, long-axis T1 spin echo and STIR, short-axis T1 spin echo and T2 fast spin echo with fat saturation through the forefoot. COMPARISON: [facility] Outside Film, CR, XR FOOT 3+ VIEWS LEFT, 06/19/2022, 9:36. FINDINGS: Image quality: Excellent. Bones and joints: No bone marrow contusions or metatarsal stress fractures. The sesamoid bones appear in expected positions, without internal edema. Mild to moderate degenerative changes at the 1st metatarsophalangeal joint with small marginal osteophytes and a small joint effusion. Mild scattered degenerative changes are seen at the interphalangeal joints of the toes. No intraosseous lesions. Soft tissues: Small amount of fluid is seen in the flexor hallucis longus tendon sheath at the level of the proximal phalanx, compatible with tenosynovitis. The visualized plantar foot muscles demonstrate normal signal and bulk. The remaining visualized flexor and extensor tendons appear intact, without tenosynovitis. The distal insertions of the peroneus brevis and longus tendons appear intact. The principal Lisfranc ligament appears intact. No significant ganglion cyst is seen. Subcutaneous thickening plantar to the 5th and 1st metatarsal heads is most likely related to chronic pressure related changes. Sagittal images demonstrate no evidence for plantar plate tears. IMPRESSION: 1. [id number] 1st metatarsophalangeal joint osteoarthrosis with a small joint effusion. 2. Mild flexor hallucis longus tenosynovitis. 3. No acute trabecular bone injury. No ligamentous injury is seen. Approved by: Juanpablo Ross M.D. on 01/08/2023 at 9:14
== END ==
PROVIDERS: Family Provider Family Medicine; PCP Family Medicine; Referring Provider Podiatrist; Visit Provider Podiatrist
DX: M19.072 Primary osteoarthritis, left ankle and foot (principal); M65.872 Other synovitis and tenosynovitis, left ankle and foot; M79.672 Pain in left foot
CPT/HCPCS: 73718

== ENCOUNTER → 2024-12-05 13:18 | Outpatient (CLI) | payer OTHER, SELFPAY ==
--- NOTE | 2024-12-05 13:20 | DI.MRI.S_ITS ---
PROCEDURE: MR SHOULDER RT WO CON INDICATIONS: shoulder pain TECHNIQUE: Noncontrast oblique coronal T2 fast spin echo with fat saturation, oblique sagittal T1 spin echo and T2 fast spin echo with fat saturation, axial T1 spin echo and T2 fast spin echo with fat saturation through the shoulder. COMPARISON: None. FINDINGS: Image quality: Excellent. Rotator cuff: The supraspinatus, infraspinatus, and subscapularis tendons appear intact throughout. Sagittal images demonstrate no significant muscle atrophy. Bones and bursae: No bone marrow contusions or fractures. Moderate acromioclavicular joint and glenohumeral joint degeneration, with inferior marginal osteophytes. The acromion demonstrates conventional anatomy, without an os acromiale. Small volume subcoracoid bursal fluid is present. Capsule and soft tissues: Labrum demonstrates extrusion at the inferior margin, but otherwise appears normal. The long head of the biceps tendon demonstrates normal location and morphology. The rotator interval appears normal, without fibrosis. The coracohumeral ligament is normal in thickness. IMPRESSION: 1. Moderate glenohumeral joint osteoarthritis with inferior marginal osteophytes and extrusion of the inferior labrum, which otherwise appears normal. 2. Moderate AC joint degeneration. 3. Small subcoracoid bursal fluid / effusion. Dictated by: Ilya Elizabeth M.D. on 12/08/2024 at 10:09 Approved by: Ilya Elizabeth M.D. on 12/08/2024 at 10:19
== END ==
PROVIDERS: Family Provider Family Medicine; PCP Family Medicine; Referring Provider Family Medicine; Visit Provider Family Medicine
DX: M19.011 Primary osteoarthritis, right shoulder (principal); M25.411 Effusion, right shoulder; M25.519 Pain in unspecified shoulder
CPT/HCPCS: 73221

== ENCOUNTER 2025-03-10 15:15 | Outpatient (RCR) | payer OTHER, SELFPAY ==
--- NOTE | 2025-02-16 17:00 | PT.OPPOC ---
Physical, Occupational & Speech Therapy At [facility] Current Diagnoses Pain in right shoulder (02/16/25) Low back pain, unspecified (02/16/25) Visit Care Team Role Provider Type Mauricio Maldonado MD Attending Provider Non-Staff Family Provider Primary Care Provider Referring Provider Specialty: Internal Medicine Address: [address] [place] [address], [place], [place], [facility] Email: Plan Of Care PT-OP-B Current Condition Start: 02/16/25 17:50 Freq: Status: Active Protocol: Document 02/16/25 16:15 DCW (Rec: 02/17/25 10:16 DCW [id number]) Current Condition History of Current Condition Current Complaints Low back pain, trunk rotation, right forward shoulder History of Current Condition Pt is a 49 year old male presenting with a history of off-and-on low back pain and shoulder discomfort. Pt notes he fractured his femur at the age of [age], which resulted in a leg length discrepancy. Notes this has caused occasional low back pain throughout his life. Uses a heel lift occasionally, depends what shoe I'm using. Notes pain overall is currently low-level, but does note some rotation in his back with right forward shoulder, which also creates shoulder pain and increases low back pain. Treatment Goals Patient/Caregiver Goals Learn how to mitigate the pain. PT-OP-T Assessment and Plan Start: 02/16/25 17:50 Freq: Status: Active Protocol: Document 02/16/25 16:15 DCW (Rec: 02/17/25 10:23 DCW [id number]) Physical Therapy Assessment Rehab Potential Rehabilitation Potential Good Evaluation Complexity Number of Personal Factors/Comorbidities 1-2 Number of Body Systems Impaired 4 or More Clinical Presentation at Evaluation Stable Impairments Impairments Functional Activities, Functional Mobility,Pain,Soft Tissue Mobility,Tone Goals Two Impairment Back pain disturbs sleep on majority of nights Senior Care Goal (LTG) Pt to report sleeping through the night without waking up due to low back pain for five nights out to the week LTG Duration 04/18/25 One Impairment Pt does not have an appropriate home exercise program Short Term Goal (STG) Pt to be independent and compliant with an appropriate HEP STG Duration 03/19/24 Assessment Summary Assessment Pt presents with signs and symptoms consistent with referring diagnosis. Pt appears to have increased soft tissue tone in right low back , as well as a mild rotation through lumbar spine, resulting in a forwardly- positioned right shoulder. Pt should benefit from skilled therapy focusing on decreasing lumbar tone and mobility, as well as decreasing rotational forces through lumbar spine by improving shoulder positioning/posture. Pt motivated to perform HEP regularly, and is interested in the idea of focusing mostly on independent HEP with weekly or bi-weekly check-ins for assessment, progression, and questions. Physical Therapy Plan Frequency and Duration Frequency of Treatment Every 1-2 weeks Plan of Care Start Date 02/16/25 Plan of Care End Date 04/18/25 Therapeutic Interventions Therapeutic Interventions Home Exercise Program,Joint Mobilizations,Manual Therapy, Neuromuscular Re-education, Patient/Caregiver Education, Self-Care/Home Management,Soft Tissue Mobilization,Taping, Therapeutic Activities, Therapeutic Exercises Modalities Cold Pack/Ice Massage,Electric Stimulation,Hot Packs Next Visit Focus/Plan Next Note Type Treatment Note Next Visit Plan Lumbar/core strengthening, lumbar mobility, decreasing lumbar rotation, improving posture Plan of Care Dates Plan of Care Start Date 02/16/25 Plan of Care End Date 04/18/25 Electronically Signed by: Angel Lopez, PT 02/17/25 1024 If you are in agreement with this Plan of Care, please return a signed and dated copy. I have reviewed this Plan of Care and certify that the skilled therapy services above are required to meet the patient?s needs. Physician Signature Date Printed Name and Credentials Clinical Instructor Signature Printed Name and Credentials
--- NOTE | 2025-02-16 17:00 | PT.OIE ---
Current Diagnoses Pain in right shoulder (02/16/25) Low back pain, unspecified (02/16/25) Past Medical History (Last Updated 07/02/23 @ 15:43 by Shelly Pruitt MD) Allergies (~1986) Anxiety (~2019) Cervical spine disease (~2017) Chronic back pain (~2017) Depression (~2019) Fatigue (~05/2020) Foot pain (~2002) Fractures (~1984) Hip pain (~2011) Hyperlipidemia (~2012) Knee pain (~2011) Obstructive sleep apnea (~05/2020) Periodic limb movement disorder (PLMD) (~05/2020) Shoulder pain (~2003) Spermatic cord pain (~2017) Tinnitus (~2013) Past Surgical History (Last Reviewed 12/04/22 @ 07:37 by Libertad Bhatia DO) Anesthesia Femur fracture, right (~1984) H/O left knee surgery (~2013) Labral tear of shoulder (~2006) Visit Care Team Role Provider Type Mauricio Maldonado MD Attending Provider Non-Staff Family Provider Primary Care Provider Referring Provider Specialty: Internal Medicine Address: [address] [place] [address], [facility] Email: Physical Therapy Initial Evaluation PT-OP-A Visit Information Start: 02/16/25 17:50 Freq: Status: Active Protocol: Document 02/16/25 16:15 DCW (Rec: 02/16/25 17:53 DCW [id number]) Out-Patient Physical Therapy Visit Information Visit Information Visit Type Initial Evaluation Visit Start Time 16:15 Visit Stop Time 16:55 Visit Number 1 Number of TUNNELING MACHINE OPERATOR Visits 0 Evaluation Information Evaluation Date 02/16/25 PT-OP-B Current Condition Start: 02/16/25 17:50 Freq: Status: Active Protocol: Document 02/16/25 16:15 DCW (Rec: 02/17/25 10:16 DCW [id number]) Current Condition History of Current Condition Current Complaints Low back pain, trunk rotation, right forward shoulder History of Current Condition Pt is a 49 year old male presenting with a history of off-and-on low back pain and shoulder discomfort. Pt notes he fractured his femur at the age of [age], which resulted in a leg length discrepancy. Notes this has caused occasional low back pain throughout his life. Uses a heel lift occasionally, depends what shoe I'm using. Notes pain overall is currently low-level, but does note some rotation in his back with right forward shoulder, which also creates shoulder pain and increases low back pain. Treatment Goals Patient/Caregiver Goals Learn how to mitigate the pain. PT-OP-C Subjective Start: 02/16/25 17:50 Freq: Status: Active Protocol: Document 02/16/25 16:15 DCW (Rec: 02/17/25 10:16 DCW [id number]) Patient Questionnaires Oswestry Low Back Index Oswestry Score = 14% PT-OP-F Manual Assessment Start: 02/16/25 17:50 Freq: Status: Active Protocol: Document 02/16/25 16:15 DCW (Rec: 02/17/25 10:16 DCW [id number]) Manual Assessments Soft Tissue Assessment Soft Tissue Mobility Assessment Increased tone with tenderness to palpation 2/4: pain with wincing at right glute med origin, right piriformis, right QL. PT-OP-J Posture/Palpation/Skin Start: 02/16/25 17:50 Freq: Status: Active Protocol: Document 02/16/25 16:15 DCW (Rec: 02/17/25 10:16 DCW [id number]) Posture Evaluation Position Sitting Evaluation View Lateral L-Spine Posture Rotation Right Shoulder Posture (R) Forward,(R) Elevated PT-OP-M Strength Start: 02/16/25 17:50 Freq: Status: Active Protocol: Document 02/16/25 16:15 DCW (Rec: 02/17/25 10:16 DCW [id number]) Hip Strength Hip Manual Muscle Testing Right Flexion (L2) 5 Normal Abduction 5 Normal Adduction 5 Normal External Rotation 5 Normal Internal Rotation 5 Normal Left Flexion (L2) 5 Normal Abduction 5 Normal Adduction 5 Normal External Rotation 5 Normal Internal Rotation 5 Normal PT-OP-Q Treatments Start: 02/16/25 17:50 Freq: Status: Active Protocol: Document 02/16/25 16:15 DCW (Rec: 02/16/25 17:53 DCW [id number]) Therapeutic Exercises Sitting Exercises Piriformis Sitting Exercise Name Seated Figure-4 stretch Side right Standing Exercises Wall Push-up Standing Exercise Name Wall push-up+ Rows Standing Exercise Name Rows Side bilateral Resistance Lv 3 PT-OP-T Assessment and Plan Start: 02/16/25 17:50 Freq: Status: Active Protocol: Document 02/16/25 16:15 DCW (Rec: 02/17/25 10:23 DCW [id number]) Physical Therapy Assessment Rehab Potential Rehabilitation Potential Good Evaluation Complexity Number of Personal Factors/Comorbidities 1-2 Number of Body Systems Impaired 4 or More Clinical Presentation at Evaluation Stable Impairments Impairments Functional Activities, Functional Mobility,Pain,Soft Tissue Mobility,Tone Goals Two Impairment Back pain disturbs sleep on majority of nights Senior Care Goal (LTG) Pt to report sleeping through the night without waking up due to low back pain for five nights out to the week LTG Duration 04/18/25 One Impairment Pt does not have an appropriate home exercise program Short Term Goal (STG) Pt to be independent and compliant with an appropriate HEP STG Duration 03/19/24 Assessment Summary Assessment Pt presents with signs and symptoms consistent with referring diagnosis. Pt appears to have increased soft tissue tone in right low back , as well as a mild rotation through lumbar spine, resulting in a forwardly- positioned right shoulder. Pt should benefit from skilled therapy focusing on decreasing lumbar tone and mobility, as well as decreasing rotational forces through lumbar spine by improving shoulder positioning/posture. Pt motivated to perform HEP regularly, and is interested in the idea of focusing mostly on independent HEP with weekly or bi-weekly check-ins for assessment, progression, and questions. Physical Therapy Plan Frequency and Duration Frequency of Treatment Every 1-2 weeks Plan of Care Start Date 02/16/25 Plan of Care End Date 04/18/25 Therapeutic Interventions Therapeutic Interventions Home Exercise Program,Joint Mobilizations,Manual Therapy, Neuromuscular Re-education, Patient/Caregiver Education, Self-Care/Home Management,Soft Tissue Mobilization,Taping, Therapeutic Activities, Therapeutic Exercises Modalities Cold Pack/Ice Massage,Electric Stimulation,Hot Packs Next Visit Focus/Plan Next Note Type Treatment Note Next Visit Plan Lumbar/core strengthening, lumbar mobility, decreasing lumbar rotation, improving posture
--- NOTE | 2025-03-10 16:01 | PT.OTN ---
Current Diagnoses Pain in right shoulder (03/10/25) Low back pain, unspecified (03/10/25) Physical Therapy Treatment Note PT-OP-A Visit Information Start: 02/16/25 17:50 Freq: Status: Active Protocol: Document 03/10/25 15:15 DCW (Rec: 03/10/25 16:01 DCW [id number]) Out-Patient Physical Therapy Visit Information Visit Information Visit Type Treatment Note Visit Start Time 15:15 Visit Stop Time 16:00 Visit Number 2 Number of CERTIFIED CYTOTECHNOLOGIST Visits 0 Evaluation Information Evaluation Date 02/16/25 PT-OP-B Current Condition Start: 02/16/25 17:50 Freq: Status: Active Protocol: Document 02/16/25 16:15 DCW (Rec: 02/17/25 10:16 DCW [id number]) Current Condition History of Current Condition Current Complaints Low back pain, trunk rotation, right forward shoulder History of Current Condition Pt is a 49 year old male presenting with a history of off-and-on low back pain and shoulder discomfort. Pt notes he fractured his femur at the age of [age], which resulted in a leg length discrepancy. Notes this has caused occasional low back pain throughout his life. Uses a heel lift occasionally, depends what shoe I'm using. Notes pain overall is currently low-level, but does note some rotation in his back with right forward shoulder, which also creates shoulder pain and increases low back pain. Treatment Goals Patient/Caregiver Goals Learn how to mitigate the pain. PT-OP-C Subjective Start: 02/16/25 17:50 Freq: Status: Active Protocol: Document 03/10/25 15:15 DCW (Rec: 03/10/25 16:01 DCW [id number]) OP-PT Subjective Patient Comments Patient Comments Notes back pain has largely resolved, but shoulder pain, not so much. PT-OP-F Manual Assessment Start: 02/16/25 17:50 Freq: Status: Active Protocol: Document 02/16/25 16:15 DCW (Rec: 02/17/25 10:16 DCW [id number]) Manual Assessments Soft Tissue Assessment Soft Tissue Mobility Assessment Increased tone with tenderness to palpation 2/4: pain with wincing at right glute med origin, right piriformis, right QL. PT-OP-J Posture/Palpation/Skin Start: 02/16/25 17:50 Freq: Status: Active Protocol: Document 02/16/25 16:15 DCW (Rec: 02/17/25 10:16 DCW [id number]) Posture Evaluation Position Sitting Evaluation View Lateral L-Spine Posture Rotation Right Shoulder Posture (R) Forward,(R) Elevated PT-OP-M Strength Start: 02/16/25 17:50 Freq: Status: Active Protocol: Document 02/16/25 16:15 DCW (Rec: 02/17/25 10:16 DCW [id number]) Hip Strength Hip Manual Muscle Testing Right Flexion (L2) 5 Normal Abduction 5 Normal Adduction 5 Normal External Rotation 5 Normal Internal Rotation 5 Normal Left Flexion (L2) 5 Normal Abduction 5 Normal Adduction 5 Normal External Rotation 5 Normal Internal Rotation 5 Normal PT-OP-Q Treatments Start: 02/16/25 17:50 Freq: Status: Active Protocol: Document 03/10/25 15:15 DCW (Rec: 03/10/25 16:01 DCW [id number]) Gym Equipment Therapeutic Ball Trunk Rotation Exercise Details Resisted Trunk Rotation Ball Size/Color Green - 65 cm Lv 3 T-band Body Position Sitting Therapeutic Exercises Prone Exercises Rows Prone Exercise Name Rows Side bilateral Resistance 4# I's, Y's, T's Prone Exercise Name Prone shoulder flexion, horizontal abduction, extension Side bilateral Resistance 4# Standing Exercises Pallof Press Standing Exercise Name Pallof Press Side bilateral Resistance Blue ER Standing Exercise Name ER with shoulder at 90 Side bilateral Resistance Green External Rotation Standing Exercise Name ER/IR with shoulder at 0 Side bilateral Resistance Blue Other Exercises UE Resisted Ambulation Other Exercise Name Walking hands down // bar Resistance Green loop PT-OP-T Assessment and Plan Start: 02/16/25 17:50 Freq: Status: Active Protocol: Document 03/10/25 15:15 DCW (Rec: 03/10/25 16:01 DCW [id number]) Physical Therapy Assessment Impairments Impairments Functional Activities, Functional Mobility,Pain,Soft Tissue Mobility,Tone Goals Two Impairment Back pain disturbs sleep on majority of nights Correction Goal (LTG) Pt to report sleeping through the night without waking up due to low back pain for five nights out to the week LTG Duration 04/18/25 One Impairment Pt does not have an appropriate home exercise program Short Term Goal (STG) Pt to be independent and compliant with an appropriate HEP STG Duration 03/19/24 Assessment Summary Assessment Continues to exhibit noticeable weakness with right shoulder, specifically with external rotation, but is feeling much better with new exercises to focus on. Feels comfortable with independent HEP, and will likely discharge , however would like to keep chart open for ~one month, will schedule follow-up if needed. Physical Therapy Plan Frequency and Duration Frequency of Treatment Every 1-2 weeks Plan of Care Start Date 02/16/25 Plan of Care End Date 04/18/25 Therapeutic Interventions Therapeutic Interventions Home Exercise Program,Joint Mobilizations,Manual Therapy, Neuromuscular Re-education, Patient/Caregiver Education, Self-Care/Home Management,Soft Tissue Mobilization,Taping, Therapeutic Activities, Therapeutic Exercises Modalities Cold Pack/Ice Massage,Electric Stimulation,Hot Packs Next Visit Focus/Plan Next Note Type Treatment Note Next Visit Plan Lumbar/core strengthening, lumbar mobility, decreasing lumbar rotation, improving posture
--- NOTE | 2025-09-16 12:37 | PT.OPDS ---
Current Diagnoses Pain in right shoulder (03/10/25) Low back pain, unspecified (03/10/25) Visit Care Team Role Provider Type Mauricio Maldonado MD Attending Provider Non-Staff Family Provider Primary Care Provider Referring Provider Specialty: Internal Medicine Address: [address] [place] [address], [id number] Email: Visit Number Visit Number 2 Discharge Summary PT-OP-T Assessment and Plan Start: 02/16/25 17:50 Freq: Status: Active Protocol: Document 09/16/25 12:35 DCW (Rec: 09/16/25 12:36 DCW [id number]) Physical Therapy Assessment Assessment Summary Assessment Pt planned to phone for follow-up if he felt it was needed. Pt has now not been seen in six months, will be discharged from skilled therapy at this time. Physical Therapy Plan Discharge Physical Therapy Discharge Reasons No Longer Attending PT
== END 2025-09-17 09:29 | disposition home or self-care (01) ==
LOC: PHYS 15:15
PROVIDERS: Family Provider Internal Medicine; PCP Internal Medicine; Referring Provider Internal Medicine; Visit Provider Internal Medicine
DX: M54.50 Low back pain, unspecified (principal); M25.511 Pain in right shoulder
CPT/HCPCS: 97110; 97161